=== PATIENT | female | born 1970 | race Two or more races ===

== ENCOUNTER 2020-05-07 11:47 | Day surgery (SDC) | payer OTHER ==
[2020-05-07] MEDS ORDERED: Sodium Chloride 0.9% 10 ML Syringe FLUSH PRN (12:12)
[2020-05-07] MEDS ORDERED: Sodium Chloride 0.9% 2.5 ML Syringe FLUSH PRN (12:12)
[2020-05-07] MEDS ORDERED: fentaNYL 50 MCG/ML SDV IVPUSH ONE ×2 (12:21→15:04)
--- NOTE | 2020-05-07 12:31 | EDM.PDOC ---
ED HPI GENERAL MEDICAL PROBLEM - General Chief Complaint: Abdominal Pain Stated Complaint: PAIN RADIATING FROM THE BACK TO THE FRONT Time Seen by Provider: 05/07/20 11:57 Source of Information: Reports: Patient History Limitations: Reports: Language Barrier - History of Present Illness INITIAL COMMENTS - FREE TEXT/NARRATIVE: Patient interviewed with a professional motor vehicle parts interpreter. 50-year-old female with no past medical history presenting with abdominal pain. She reports the sudden onset of severe right upper quadrant abdominal pain rating to the back several hours ago this morning. Nothing makes it better or worse. She does have a history of similar pain like this in the past and was told that she has gallstones. No history of kidney stones. The pain is rated as 10 out of 10 and constant. Denies fever, nausea, vomiting, dysuria, urinary frequency, hematuria, bloody vomit or bloody stools. ROS: A 10-point review of systems was negative, except as noted in the HPI (or in the ROS section of this note). Past medical history: Reviewed, no additional pertinent history. Surgical history: Reviewed in system, no additional pertinent history. Social history: Reviewed in system, no additional pertinent history. Family history: Reviewed in system, no additional pertinent history. PHYSICAL EXAM Vital signs reviewed. Nursing notes reviewed. Constitutional: Awake, alert, appears extremely uncomfortable. Head: Normocephalic, atraumatic. Eyes: EOMI, conjunctiva normal, no discharge, no scleral icterus. Ears, Nose, Throat: External ears and nose normal, moist oral mucosa. Cardiovascular: 2+ radial pulse, capillary refill less than 2 seconds. Pulmonary: normal work of breathing, no accessory muscle use. Abdomen/GI: Soft, moderate right upper quadrant tenderness, nondistended, no guarding or rigidity, no masses. No CVA tenderness. Musculoskeletal: No deformities. Integumentary: Appropriate color for ethnicity, warm, dry, no pallor or jaundice, no rash. Neurologic: Alert, answering questions appropriately, normal speech, no facial droop, moving all extremities well. Psychiatric: Anxious. RUQ Pain Score (Numeric/FACES): 10 - Related Data Allergies Allergy/AdvReac Type Severity Reaction Status Date / Time No Known Allergies Allergy Verified 05/07/20 12:11 Home Meds: Home Meds . [No Known Home Meds] 05/07/20 [History] Past Medical History HEENT History: Reports: None Cardiovascular History: Reports: None Respiratory History: Reports: None Gastrointestinal History: Reports: Cholelithiasis Genitourinary History: Reports: None PROFESSIONAL CASTER History: Reports: None Musculoskeletal History: Reports: None Neurological History: Reports: CVA, TIA Psychiatric History: Reports: None Endocrine/Metabolic History: Reports: None Hematologic History: Reports: None Immunologic History: Reports: None Oncologic (Cancer) History: Reports: None Dermatologic History: Reports: None - Infectious Disease History Infectious Disease History: Reports: None - Past Surgical History Head Surgeries/Procedures: Reports: None HEENT Surgical History: Reports: None Cardiovascular Surgical History: Reports: None Respiratory Surgical History: Reports: None GI Surgical History: Reports: None Female Surgical History: Reports: None Endocrine Surgical History: Reports: None Neurological Surgical History: Reports: None Musculoskeletal Surgical History: Reports: None Oncologic Surgical History: Reports: None Dermatological Surgical History: Reports: None Social & Family History - Family History Family Medical History: Noncontributory - Tobacco Use Smoking Status *Q: Current Every Day Smoker Years of Tobacco use: 7 Packs/Tins Daily: 0.4 - Caffeine Use Caffeine Use: Reports: None - Recreational Drug Use Recreational Drug Use: No ED ROS GENERAL - Review of Systems Review Of Systems: See Below ED EXAM, GI/ABD - Physical Exam Exam: See Below EKG INTERPRETATION EKG Interpretation Comments: 12-Lead ECG Interpretation Acquired: 12:18 PM Rhythm: Sinus bradycardia Rate: 48 bpm [place]: Normal Intervals: Normal Ectopy: None Ischemic Changes: None apparent RV Strain: No obvious RV strain pattern. ST Segments/T-Waves: T wave inversions in aVL Interpretation: Unremarkable Course - Vital Signs Text/Narrative:: Labs reassuring. Urinalysis bland. CT abdomen/pelvis shows 2 gallstones. Abdominal ultrasound study shows a 2.3 cm gallstone within the gallbladder without evidence of biliary ductal dilatation, wall measurement does meet criteria for thickening as it is greater than 3 mm. Given multiple rounds of IV opioids including fentanyl x2 and Dilaudid. Suspicion for symptomatic cholelithiasis. Given ongoing pain and presence of stones, I did consult the on-call general surgeon Dr. Juan David Santana who evaluated the patient in the emergency department. I am concerned about ongoing pain and the patient will need to come into the hospital for this. Dr. Santana agrees to admit to observation status and likely cholecystectomy tomorrow morning. Last Recorded V/S: Last Vital Signs Temp 36.2 C 05/07/20 17:05 Pulse 51 L 05/07/20 17:05 Resp 16 05/07/20 17:05 BP 137/74 05/07/20 17:05 Pulse Ox 98 05/07/20 17:05 - Orders/Labs/Meds Orders: Active Orders 24 hr Category Date Time Status Admission Status [Patient Status] [ADT] Stat ADT 05/07/20 16:52 Active EKG Documentation Completion [RC] STAT Care 05/07/20 12:12 Active Pulse Oximetry [RC] ASDIRECTED Care 05/07/20 12:12 Active NPO Now [Nothing per Oral Now Diet] [DIET] Diet 05/07/20 Dinner Active CORONAVIRUS COVID-19 SIS [MOLEC] Stat Lab 05/07/20 17:15 Received Sodium Chloride 0.9% [Saline Flush] Med 05/07/20 12:12 Active 10 ml FLUSH ASDIRECTED PRN Sodium Chloride 0.9% [Saline Flush] Med 05/07/20 12:12 Active 2.5 ml FLUSH ASDIRECTED PRN Saline Lock Insert [OM.PC] Stat Oth 05/07/20 12:12 Ordered Medication Orders Sodium Chloride (Saline Flush) 2.5 ml FLUSH ASDIRECTED PRN PRN Reason: Keep Vein Open Last Admin: 05/07/20 12:29 Dose: 2.5 ml Documented by: KODY Sodium Chloride (Saline Flush) 10 ml FLUSH ASDIRECTED PRN PRN Reason: Keep Vein Open Last Admin: 05/07/20 12:29 Dose: 10 ml Documented by: KODY Labs: Laboratory Tests 05/07/20 05/07/20 05/07/20 Range/Units 12:25 12:25 12:25 WBC 6.37 (4.0-11.0) K/uL RBC 4.72 (4.30-5.90) M/uL Hgb 13.3 (12.0-16.0) g/dL Hct 39.3 (36.0-46.0) % MCV 83.3 (80.0-98.0) fL MCH 28.2 (27.0-32.0) pg MCHC 33.8 (31.0-37.0) g/dL RDW Std Deviation 41.3 (28.0-62.0) fl RDW Coeff of Amy 14 (11.0-15.0) % Plt Count 221 (150-400) K/uL MPV 11.20 (7.40-12.00) fL Neut % (Auto) 66.3 (48.0-80.0) % Lymph % (Auto) 19.3 (16.0-40.0) % [place] % (Auto) 10.8 (0.0-15.0) % Eos % (Auto) 3.6 (0.0-7.0) % Baso % (Auto) 0.0 (0.0-1.5) % Neut # (Auto) 4.2 (1.4-5.7) K/uL Lymph # (Auto) 1.2 (0.6-2.4) K/uL [place] # (Auto) 0.7 (0.0-0.8) K/uL Eos # (Auto) 0.2 (0.0-0.7) K/uL Baso # (Auto) 0.0 (0.0-0.1) K/uL Sodium 139 (136-145) mmol/L Potassium 4.1 (3.5-5.1) mmol/L Chloride 105 (98-107) mmol/L Carbon Dioxide 26.4 (21.0-32.0) mmol/L BUN 10 (7.0-18.0) mg/dL Creatinine 0.9 (0.6-1.0) mg/dL Est Cr Clr Drug Dosing 64.58 mL/min Estimated GFR (MDRD) > 60.0 ml/min Glucose 106 (74-106) mg/dL Calcium 8.5 (8.5-10.1) mg/dL Total Bilirubin 0.3 (0.2-1.0) mg/dL AST 22 (15-37) IU/L ALT 21 (14-63) IU/L Alkaline Phosphatase 95 (46-116) U/L Troponin I < 0.050 (0.000-0.056) ng/mL Total Protein 8.1 (6.4-8.2) g/dL Albumin 3.9 (3.4-5.0) g/dL Globulin 4.2 H (2.6-4.0) g/dL Albumin/Globulin Ratio 0.9 (0.9-1.6) Lipase 155 (73-393) U/L HCG, Qual NEGATIVE (NEG) Urine Color Urine Appearance Urine pH (5.0-8.0) Ur Specific [place] (1.001-1.035) Urine Protein (NEGATIVE) mg/dL Urine Glucose (UA) (NEGATIVE) mg/dL Urine Ketones (NEGATIVE) mg/dL Urine Occult Blood (NEGATIVE) Urine Nitrite (NEGATIVE) Urine Bilirubin (NEGATIVE) Urine Urobilinogen (<2.0) EU/dL Ur Leukocyte Esterase (NEGATIVE) 05/07/20 Range/Units 15:33 WBC (4.0-11.0) K/uL RBC (4.30-5.90) M/uL Hgb (12.0-16.0) g/dL Hct (36.0-46.0) % MCV (80.0-98.0) fL MCH (27.0-32.0) pg MCHC (31.0-37.0) g/dL RDW Std Deviation (28.0-62.0) fl RDW Coeff of Amy (11.0-15.0) % Plt Count (150-400) K/uL MPV (7.40-12.00) fL Neut % (Auto) (48.0-80.0) % Lymph % (Auto) (16.0-40.0) % [place] % (Auto) (0.0-15.0) % Eos % (Auto) (0.0-7.0) % Baso % (Auto) (0.0-1.5) % Neut # (Auto) (1.4-5.7) K/uL Lymph # (Auto) (0.6-2.4) K/uL [place] # (Auto) (0.0-0.8) K/uL Eos # (Auto) (0.0-0.7) K/uL Baso # (Auto) (0.0-0.1) K/uL Sodium (136-145) mmol/L Potassium (3.5-5.1) mmol/L Chloride (98-107) mmol/L Carbon Dioxide (21.0-32.0) mmol/L BUN (7.0-18.0) mg/dL Creatinine (0.6-1.0) mg/dL Est Cr Clr Drug Dosing mL/min Estimated GFR (MDRD) ml/min Glucose (74-106) mg/dL Calcium (8.5-10.1) mg/dL Total Bilirubin (0.2-1.0) mg/dL AST (15-37) IU/L ALT (14-63) IU/L Alkaline Phosphatase (46-116) U/L Troponin I (0.000-0.056) ng/mL Total Protein (6.4-8.2) g/dL Albumin (3.4-5.0) g/dL Globulin (2.6-4.0) g/dL Albumin/Globulin Ratio (0.9-1.6) Lipase (73-393) U/L HCG, Qual (NEG) Urine Color YELLOW Urine Appearance CLEAR Urine pH 6.0 (5.0-8.0) Ur Specific [place] <= 1.005 (1.001-1.035) Urine Protein NEGATIVE (NEGATIVE) mg/dL Urine Glucose (UA) NEGATIVE (NEGATIVE) mg/dL Urine Ketones NEGATIVE (NEGATIVE) mg/dL Urine Occult Blood NEGATIVE (NEGATIVE) Urine Nitrite NEGATIVE (NEGATIVE) Urine Bilirubin NEGATIVE (NEGATIVE) Urine Urobilinogen 0.2 (<2.0) EU/dL Ur Leukocyte Esterase NEGATIVE (NEGATIVE) Meds: Medications Generic Name Dose Route Start Last Admin Trade Name Freq PRN Reason Stop Dose Admin Sodium Chloride 2.5 ml 05/07/20 12:12 05/07/20 12:29 Saline Flush FLUSH 2.5 ml ASDIRECTED PRN Administration Keep Vein Open Sodium Chloride 10 ml 05/07/20 12:12 05/07/20 12:29 Saline Flush FLUSH 10 ml ASDIRECTED PRN Administration Keep Vein Open Discontinued Medications Generic Name Dose Route Start Last Admin Trade Name Freq PRN Reason Stop Dose Admin Fentanyl 75 mcg 05/07/20 12:21 05/07/20 12:28 Fentanyl IVPUSH 05/07/20 12:22 75 mcg ONETIME ONE Administration Fentanyl 75 mcg 05/07/20 15:04 05/07/20 15:20 Fentanyl IVPUSH 05/07/20 15:05 75 mcg ONETIME ONE Administration Hydromorphone HCl 1 mg 05/07/20 12:47 05/07/20 12:58 Dilaudid IVPUSH 05/07/20 12:48 1 mg ONETIME ONE Administration Piperacillin Sod/Tazobactam 100 mls @ 100 mls/hr 05/07/20 15:20 05/07/20 15:31 Sod 4.5 gm/ Sodium Chloride IV 05/07/20 16:19 100 mls/hr ONETIME ONE Administration Iopamidol 100 ml 05/07/20 15:58 05/07/20 15:59 Isovue-370 (76%) IVPUSH 05/07/20 15:59 100 ml ONETIME STA Administration Departure - Departure Time of Disposition: 17:00 Disposition: Refer to Observation Condition: Good Clinical Impression: Symptomatic cholelithiasis - Discharge Information Referrals: PCP,None [Primary Care Provider] - Forms: ED Department Discharge Sepsis Event Note (ED) - Evaluation Sepsis Screening Result: No Definite Risk - Focused Exam Vital Signs: Vital Signs Temp Pulse Resp BP Pulse Ox 05/07/20 17:05 36.2 C 51 L 16 137/74 98 05/07/20 16:47 54 L 18 137/74 98 05/07/20 15:20 52 L 18 130/64 98 05/07/20 12:08 36.2 C 57 L 18 134/77 98 - My Orders Last 24 Hours: My Active Orders 05/07/20 12:12 EKG Documentation Completion [RC] STAT Pulse Oximetry [RC] ASDIRECTED Sodium Chloride 0.9% [Saline Flush] 10 ml FLUSH ASDIRECTED PRN Sodium Chloride 0.9% [Saline Flush] 2.5 ml FLUSH ASDIRECTED PRN Saline Lock Insert [OM.PC] Stat 05/07/20 Dinner NPO Now [Nothing per Oral Now Diet] [DIET] 05/07/20 16:52 Admission Status [Patient Status] [ADT] Stat 05/07/20 17:15 CORONAVIRUS COVID-19 SIS [MOLEC] Stat - Assessment/Plan Last 24 Hours: My Active Orders 05/07/20 12:12 EKG Documentation Completion [RC] STAT Pulse Oximetry [RC] ASDIRECTED Sodium Chloride 0.9% [Saline Flush] 10 ml FLUSH ASDIRECTED PRN Sodium Chloride 0.9% [Saline Flush] 2.5 ml FLUSH ASDIRECTED PRN Saline Lock Insert [OM.PC] Stat 05/07/20 Dinner NPO Now [Nothing per Oral Now Diet] [DIET] 05/07/20 16:52 Admission Status [Patient Status] [ADT] Stat 05/07/20 17:15 CORONAVIRUS COVID-19 SIS [MOLEC] Stat
[2020-05-07] MEDS ORDERED: HYDROmorphone 1 MG/ML Syringe IVPUSH ONE (12:47)
[2020-05-07 13:09] LABS: BLOOD UREA NITROGEN,BUN 10 mg/dL (7.0-18.0); CARBON DIOXIDE,CO2 26.4 mmol/L (21.0-32.0); CHLORIDE,CL 105 mmol/L (98-107); GLUCOSE RANDOM 106 mg/dL (74-106); LIPASE 155 U/L (73-393); POTASSIUM,K 4.1 mmol/L (3.5-5.1); SODIUM,NA 139 mmol/L (136-145)
--- NOTE | 2020-05-07 14:08 | CT ---
CT abdomen and pelvis Technique: Multiple axial sections were obtained from above the dome of the diaphragm inferiorly through the pubic symphysis. Intravenous contrast was utilized. No oral contrast has been given. Comparison: No prior abdominal imaging is available. Findings: Visualized lung bases show nothing acute. Liver contains no focal parenchymal abnormality. Slight low density is noted next to the ligamentum teres fissure compatible with incidental fat. Spleen appears within normal limits. Adrenal glands show no nodule. Single rim calcified gallstone noted within the gallbladder measuring 1.8 cm. Kidneys show symmetric contrast enhancement. No hydronephrosis or mass is seen. Pancreas appears within normal limits. Small hiatal hernia is noted. Aorta shows no aneurysm. No retroperitoneal adenopathy or mesenteric abnormalities are seen. Subserosal fibroid is noted to the right side of the uterus measuring 3.1 cm. No pelvic mass or adenopathy is seen. No free fluid is seen. Appendix is seen which appears normal in size. Bone window settings were reviewed which showed no acute osseous finding. Impression: 1. Small hiatal hernia. 2. Single rim calcified gallstone measuring 1.8 cm. Right-sided uterine fibroid measuring 3.1 cm. 3. Nothing acute is appreciated on CT study of the abdomen and pelvis. Diagnostic code #2 Study was dictated in MDT
--- NOTE | 2020-05-07 15:04 | US ---
Addendum: Ultrasound and CT study was reviewed. CT exam shows 2 rim calcified gallstones. Larger stone within the fundus and there is a smaller stone within the gallbladder neck. CT exam also shows minimal haziness around the gallbladder wall. The larger fundal gallstone is not definitely appreciated on the ultrasound exam most likely obscured from bowel gas. Findings support but are not conclusive for acute cholecystitis. Please correlate with patient's symptoms and laboratory findings. --- Addendum1 above dictated on [05/07/2020 14:59] by [Jeramy Boudreaux, Ariel Manriquez] --- --- Addendum1 above signed on [05/07/2020 15:00] by [Jeramy Boudreaux Hilton J.] --- --- Original report below dictated on [05/07/2020 13:58] by [Jeramy Boudreaux Hilton J.] --- --- Original report below signed on [05/07/2020 14:01] by [Jeramy Boudreaux, Ariel Manriquez] --- Limited abdominal ultrasound: Multiple real-time images of the upper right abdomen were obtained. Comparison: No previous abdominal ultrasound, prior CT abdomen and pelvis study performed earlier on same day (1:40 PM). Findings: Liver shows no focal abnormality. Visualized portions of the pancreas shows no abnormality. Gallstone is noted within the gallbladder measuring 2.3 cm. No gallbladder wall thickening or biliary duct dilatation is seen. Right kidney shows no hydronephrosis or mass. Right kidney is length of 10.6 cm. Inferior vena cava is patent. Aorta shows no aneurysm. Impression: 1. Single gallstone within the gallbladder. No gallbladder wall thickening or biliary duct dilatation is seen. 2. No additional abnormality is appreciated on right upper quadrant abdominal ultrasound. Diagnostic code #2 Study was dictated in MDT --- Addendum1 signed ---
[2020-05-07] MEDS ORDERED: Piperacillin/Tazobactam 4.5 GM in Sodium Chloride 0.9% 100 ML IV ONE (15:20)
[2020-05-07] MEDS ORDERED: Iopamidol 755 Mg/ML 100 ML Bottle IVPUSH STA (15:58)
[2020-05-07] MEDS ORDERED: Ondansetron 4 MG/2 ML SDV IVPUSH PRN (17:22)
[2020-05-07] MEDS ORDERED: Acetaminophen/HYDROcodone 325-5 MG Tab PO PRN (17:22)
[2020-05-07] MEDS ORDERED: HYDROmorphone 2 MG/ML Syringe IVPUSH PRN (17:22)
[2020-05-07] MEDS ORDERED: cefOXitin 2 GM in Premix Bag 1 BAG IV ONE (17:37)
--- NOTE | 2020-05-07 17:58 | PCM.HP.2 ---
H&P History of Present Illness - General Date of Service: 05/07/20 Admit Problem/Dx: Admission Diagnosis/Problem Admission Diagnosis/Problem Symptomatic cholelithiasis Source of Information: Patient History Limitations: Reports: Language Barrier (we did use the translation devise) - History of Present Illness Initial Comments - Free Text/Narative: Pt is a pleasant 50 y/o female. She had some minimal epigastric pain last night, but this morning the pain became sever and started to move to her right side and back. No N/V. No fevers. Pt says she has been having similar attaches the past couple of months, but they usually resolve and are to as sever. She does not know of anything that makes the pain better or worse. She reports that the pain is the most severe she has ever had. She reports she was scheduled for cholecystectomy this November, but it was cancelled because of COVID and the hospital in [place] was not doing elective surgeries. She is here visiting her . Currently she does not have an elevated WBC or LFTs. US does show a stone in the neck of the gallbladder and CT shows two gallstones. I did call and speak with the radiologist and there is no korin-cystic fluid and CBD is not dilated and the wall is not thickened. RUQ Pain Score (Numeric/FACES): 10 - Related Data Allergies/Adverse Reactions: Allergies Allergy/AdvReac Type Severity Reaction Status Date / Time No Known Allergies Allergy Verified 05/08/20 00:55 Home Medications: Home Meds . [No Known Home Meds] 05/07/20 [History] Past Medical History HEENT History: Reports: None Cardiovascular History: Reports: RI (Pt says she had a "small" RI in the past but is only on baby ASA. She reports that she had a cardic work-up for her surgery which was good.) Respiratory History: Reports: None Gastrointestinal History: Reports: Cholelithiasis Genitourinary History: Reports: None [employer] History: Reports: None Musculoskeletal History: Reports: None Neurological History: Reports: None Psychiatric History: Reports: None Endocrine/Metabolic History: Reports: None Hematologic History: Reports: None Immunologic History: Reports: None Oncologic (Cancer) History: Reports: None Dermatologic History: Reports: None - Infectious Disease History Infectious Disease History: Reports: None - Past Surgical History Head Surgeries/Procedures: Reports: None HEENT Surgical History: Reports: None Cardiovascular Surgical History: Reports: None Respiratory Surgical History: Reports: None GI Surgical History: Reports: None Female Surgical History: Reports: Section Endocrine Surgical History: Reports: None Neurological Surgical History: Reports: None Musculoskeletal Surgical History: Reports: None Oncologic Surgical History: Reports: None Dermatological Surgical History: Reports: None Social & Family History - Family History Family Medical History: Noncontributory HEENT: Reports: None Cardiac: Reports: None Respiratory: Reports: None GI: Reports: None : Reports: None OBGYN: Reports: None Musculoskeletal: Reports: None - Tobacco Use Smoking Status *Q: Current Every Day Smoker Years of Tobacco use: 7 Packs/Tins Daily: 0.4 - Caffeine Use Caffeine Use: Reports: None - Alcohol Use Alcohol Use History: Yes Days Per Week of Alcohol Use: 1 (Occ has some tequila) - Recreational Drug Use Recreational Drug Use: No H&P Review of Systems - Review of Systems: Review Of Systems: See Below General: Reports: No Symptoms HEENT: Reports: No Symptoms Pulmonary: Reports: No Symptoms Cardiovascular: Reports: No Symptoms Gastrointestinal: Reports: Abdominal Pain. Denies: Anorexia, Bloody Stool, Constipation, Diarrhea, Difficulty Swallowing, Nausea, Vomiting Genitourinary: Reports: No Symptoms Musculoskeletal: Reports: No Symptoms Skin: Reports: No Symptoms Neurological: Reports: No Symptoms Exam - Exam Exam: See Below - Vital Signs Vital Signs: Last Vital Signs Temp 97.2 F 05/07/20 17:05 Pulse 51 L 05/07/20 17:05 Resp 16 05/07/20 17:05 BP 137/74 05/07/20 17:05 Pulse Ox 98 05/07/20 17:05 Weight: 155 lb - Exam General: Alert, Oriented, Cooperative Lungs: Clear to Auscultation Cardiovascular: Regular Rate, Regular Rhythm GI/Abdominal Exam: Soft, Tender (in the epigastric and RUQ), Other (She was some darkening of the skin that wrapes around her right side and abdomen there are also some darker spots that look possible like a bruise. She also has a darken area on the right side of her face. She reports them as a birthmark). No: Guarding, Rigid, Rebound Extremities: Normal Inspection Skin: Warm, Dry, Intact Neurological: Normal Speech. No: Focal Deficit Neuro Extensive - Mental Status: Alert, Normal Mood/Affect, Normal Cognition - Patient Data Lab Results Last 24 hrs: Laboratory Results - last 24 hr 05/07/20 05/07/20 05/07/20 Range/Units 12:25 12:25 12:25 WBC 6.37 (4.0-11.0) K/uL RBC 4.72 (4.30-5.90) M/uL Hgb 13.3 (12.0-16.0) g/dL Hct 39.3 (36.0-46.0) % MCV 83.3 (80.0-98.0) fL MCH 28.2 (27.0-32.0) pg MCHC 33.8 (31.0-37.0) g/dL RDW Std Deviation 41.3 (28.0-62.0) fl RDW Coeff of Amy 14 (11.0-15.0) % Plt Count 221 (150-400) K/uL MPV 11.20 (7.40-12.00) fL Neut % (Auto) 66.3 (48.0-80.0) % Lymph % (Auto) 19.3 (16.0-40.0) % [place] % (Auto) 10.8 (0.0-15.0) % Eos % (Auto) 3.6 (0.0-7.0) % Baso % (Auto) 0.0 (0.0-1.5) % Neut # (Auto) 4.2 (1.4-5.7) K/uL Lymph # (Auto) 1.2 (0.6-2.4) K/uL [place] # (Auto) 0.7 (0.0-0.8) K/uL Eos # (Auto) 0.2 (0.0-0.7) K/uL Baso # (Auto) 0.0 (0.0-0.1) K/uL Sodium 139 (136-145) mmol/L Potassium 4.1 (3.5-5.1) mmol/L Chloride 105 (98-107) mmol/L Carbon Dioxide 26.4 (21.0-32.0) mmol/L BUN 10 (7.0-18.0) mg/dL Creatinine 0.9 (0.6-1.0) mg/dL Est Cr Clr Drug Dosing 64.58 mL/min Estimated GFR (MDRD) > 60.0 ml/min Glucose 106 (74-106) mg/dL Calcium 8.5 (8.5-10.1) mg/dL Total Bilirubin 0.3 (0.2-1.0) mg/dL AST 22 (15-37) IU/L ALT 21 (14-63) IU/L Alkaline Phosphatase 95 (46-116) U/L Troponin I < 0.050 (0.000-0.056) ng/mL Total Protein 8.1 (6.4-8.2) g/dL Albumin 3.9 (3.4-5.0) g/dL Globulin 4.2 H (2.6-4.0) g/dL Albumin/Globulin Ratio 0.9 (0.9-1.6) Lipase 155 (73-393) U/L HCG, Qual NEGATIVE (NEG) Urine Color Urine Appearance Urine pH (5.0-8.0) Ur Specific [place] (1.001-1.035) Urine Protein (NEGATIVE) mg/dL Urine Glucose (UA) (NEGATIVE) mg/dL Urine Ketones (NEGATIVE) mg/dL Urine Occult Blood (NEGATIVE) Urine Nitrite (NEGATIVE) Urine Bilirubin (NEGATIVE) Urine Urobilinogen (<2.0) EU/dL Ur Leukocyte Esterase (NEGATIVE) 05/07/20 Range/Units 15:33 WBC (4.0-11.0) K/uL RBC (4.30-5.90) M/uL Hgb (12.0-16.0) g/dL Hct (36.0-46.0) % MCV (80.0-98.0) fL MCH (27.0-32.0) pg MCHC (31.0-37.0) g/dL RDW Std Deviation (28.0-62.0) fl RDW Coeff of Amy (11.0-15.0) % Plt Count (150-400) K/uL MPV (7.40-12.00) fL Neut % (Auto) (48.0-80.0) % Lymph % (Auto) (16.0-40.0) % [place] % (Auto) (0.0-15.0) % Eos % (Auto) (0.0-7.0) % Baso % (Auto) (0.0-1.5) % Neut # (Auto) (1.4-5.7) K/uL Lymph # (Auto) (0.6-2.4) K/uL [place] # (Auto) (0.0-0.8) K/uL Eos # (Auto) (0.0-0.7) K/uL Baso # (Auto) (0.0-0.1) K/uL Sodium (136-145) mmol/L Potassium (3.5-5.1) mmol/L Chloride (98-107) mmol/L Carbon Dioxide (21.0-32.0) mmol/L BUN (7.0-18.0) mg/dL Creatinine (0.6-1.0) mg/dL Est Cr Clr Drug Dosing mL/min Estimated GFR (MDRD) ml/min Glucose (74-106) mg/dL Calcium (8.5-10.1) mg/dL Total Bilirubin (0.2-1.0) mg/dL AST (15-37) IU/L ALT (14-63) IU/L Alkaline Phosphatase (46-116) U/L Troponin I (0.000-0.056) ng/mL Total Protein (6.4-8.2) g/dL Albumin (3.4-5.0) g/dL Globulin (2.6-4.0) g/dL Albumin/Globulin Ratio (0.9-1.6) Lipase (73-393) U/L HCG, Qual (NEG) Urine Color YELLOW Urine Appearance CLEAR Urine pH 6.0 (5.0-8.0) Ur Specific [place] <= 1.005 (1.001-1.035) Urine Protein NEGATIVE (NEGATIVE) mg/dL Urine Glucose (UA) NEGATIVE (NEGATIVE) mg/dL Urine Ketones NEGATIVE (NEGATIVE) mg/dL Urine Occult Blood NEGATIVE (NEGATIVE) Urine Nitrite NEGATIVE (NEGATIVE) Urine Bilirubin NEGATIVE (NEGATIVE) Urine Urobilinogen 0.2 (<2.0) EU/dL Ur Leukocyte Esterase NEGATIVE (NEGATIVE) Result Diagrams: 05/08/20 05:20 05/08/20 05:20 Sepsis Event Note - Evaluation Sepsis Screening Result: No Definite Risk - Focused Exam Vital Signs: Vital Signs Temp Pulse Resp BP Pulse Ox 08/11/20 17:05 97.2 F 51 L 16 137/74 98 05/07/20 16:47 54 L 18 137/74 98 05/07/20 15:20 52 L 18 130/64 98 05/07/20 12:08 97.2 F 57 L 18 134/77 98 *Q Meaningful Use (ADM) - VTE Risk Assess *Q Each Risk Factor Represents 1 Point: Age 41 - 59 years, Obesity ( BMI > 25 kg/m2) Total Score 1 Point Risk Factors: 2 Each Risk Factor Represents 2 Points: Laparoscopic surgery greater than 45 minutes Total Score 2 Point Risk Factors: 2 - Problem List (1) Symptomatic cholelithiasis SNOMED Code(s): 704066060, 455607330 ICD Code: K80.20 - CALCULUS OF GALLBLADDER W/O CHOLECYSTITIS W/O OBSTRUCTION Status: Acute Problem List Initiated/Reviewed/Updated: Yes Orders Last 24hrs: Active Orders 24 hr Category Date Time Status Patient Status [ADT] Routine ADT 05/07/20 17:22 Ordered Antiembolic Devices [RC] PER UNIT ROUTINE Care 05/07/20 17:32 Active EKG Documentation Completion [RC] STAT Care 05/07/20 12:12 Active Height and Weight [RC] UPON Care 05/07/20 17:22 Ordered Intake and Output [RC] QSHIFT Care 05/07/20 17:24 Ordered Oxygen Therapy [RC] PRN Care 05/07/20 17:22 Ordered Pulse Oximetry [RC] ASDIRECTED Care 05/07/20 12:12 Active Pulse Oximetry [RC] PRN Care 05/07/20 17:24 Ordered Up ad Rosa M [RC] ASDIRECTED Care 05/07/20 17:22 Ordered VTE/DVT Education [RC] PER UNIT ROUTINE Care 05/07/20 17:22 Ordered Vital Signs [RC] Q4H Care 05/07/20 17:22 Ordered Full Liquid Diet [DIET] Diet 05/07/20 Dinner Ordered NPO Now [Nothing per Oral Now Diet] [DIET] Diet 05/07/20 Dinner Active Nothing per Oral After Midnight Diet [DIET] Diet 05/07/20 Breakfast Ordered CBC WITH AUTO DIFF [HEME] AM Lab 05/08/20 05:11 Ordered COMPREHENSIVE METABOLIC PN,CMP [CHEM] AM Lab 05/08/20 05:11 Ordered CORONAVIRUS COVID-19 SIS [MOLEC] Stat Lab 05/07/20 17:15 Received Acetaminophen/HYDROcodone [[place] 325-5 MG] Med 05/07/20 17:22 Ordered 1 tab PO Q4H PRN HYDROmorphone [Dilaudid] Med 05/07/20 17:22 Ordered 0.25 mg IVPUSH Q2H PRN Ondansetron [Zofran] Med 05/07/20 17:22 Ordered 4 mg IVPUSH Q4H PRN Sodium Chloride 0.9% @ 125 MLS/HR (1000ml) Med 05/07/20 17:30 Ordered Sodium Chloride 0.9% [Normal Saline] 1,000 ml IV ASDIRECTED Sodium Chloride 0.9% [Saline Flush] Med 05/07/20 12:12 Active 10 ml FLUSH ASDIRECTED PRN Sodium Chloride 0.9% [Saline Flush] Med 05/07/20 12:12 Active 2.5 ml FLUSH ASDIRECTED PRN cefOXitin [Mefoxin in Dextrose,Iso-Osm 2 GM/50 ML] 2 gm Med 05/07/20 17:37 Ordered Premix Bag 1 bag IV ONETIME Saline Lock Insert [OM.PC] Stat Oth 05/07/20 12:12 Ordered Sequential Compression Device [OM.PC] Per Unit Routine Oth 05/07/20 17:25 Ordered Resuscitation Status Routine Resus Stat 05/07/20 17:22 Ordered Medication Orders Hydrocodone Bitart/Acetaminophen ([place] 325-5 Mg) 1 tab PO Q4H PRN PRN Reason: Pain (moderate 4-6) Hydromorphone HCl (Dilaudid) 0.25 mg IVPUSH Q2H PRN PRN Reason: Pain (severe 7-10) Sodium Chloride (Normal Saline) 1,000 mls @ 125 mls/hr IV ASDIRECTED HAYDE Cefoxitin Sodium 2 gm/ Premix 50 mls @ 100 mls/hr IV ONETIME ONE Stop: 05/07/20 18:06 Ondansetron HCl (Zofran) 4 mg IVPUSH Q4H PRN PRN Reason: Nausea Sodium Chloride (Saline Flush) 2.5 ml FLUSH ASDIRECTED PRN PRN Reason: Keep Vein Open Last Admin: 05/07/20 12:29 Dose: 2.5 ml Documented by: GROTALI Sodium Chloride (Saline Flush) 10 ml FLUSH ASDIRECTED PRN PRN Reason: Keep Vein Open Last Admin: 05/07/20 12:29 Dose: 10 ml Documented by: KODY Assessment/Plan Comment:: I did go over with the pt what a gallbladder was. I went over its function. I went over that she most likely has symptomatic cholelithiasis. I went over that since her pain is not control that she could be admitted and plan for a surgery in the morning. If the pain resolves, she could leave in the morning and go back to [place]. However the pt would like to have it done since she keeps on getting gallbladder attacks and her biliary colic appears to be getting worse. I went over the risks, goals, and alternatives of surgery. Risks include, but not limited to bleeding, infection, bile luca, injury to nearby structures like duodenum, or CBD, the need to convert to open, hernia formation, need for a cholangiogram, and that this may be something other than her gallbladder such as an ulcer. The pt understands, I did answer her questions. Pt wants to be admitted with likely surgery tomorrow morning.
[2020-05-07] MEDS: Sodium Chloride 0.9% 1,000 ML IV SCH (18:28)
[2020-05-08 06:33] LABS: BLOOD UREA NITROGEN,BUN 7 mg/dL (7.0-18.0); CARBON DIOXIDE,CO2 25.8 mmol/L (21.0-32.0); CHLORIDE,CL 105 mmol/L (98-107); GLUCOSE RANDOM 93 mg/dL (74-106); POTASSIUM,K 3.2 mmol/L (3.5-5.1); SODIUM,NA 139 mmol/L (136-145)
[2020-05-08] MEDS: Sodium Chloride 0.9% 1,000 ML IV SCH (07:06)
[2020-05-08] MEDS ORDERED: Midazolam 1 MG/ML 2 ML SDV ONE (07:09)
[2020-05-08] MEDS ORDERED: Ondansetron 4 MG/2 ML SDV ONE (07:09)
[2020-05-08] MEDS ORDERED: Propofol 200 MG/20 ML SDV ONE (07:09)
[2020-05-08] MEDS ORDERED: fentaNYL 250 MCG/5 ML SDV ONE (07:09)
[2020-05-08] MEDS ORDERED: Lidocaine 2% 100 MG/5 ML Syringe ONE (07:09)
[2020-05-08] MEDS ORDERED: Rocuronium Bromide 50 MG/5 ML Syringe ONE (07:09)
[2020-05-08] MEDS ORDERED: Dexamethasone 4 MG/ML 5 ML MDV ONE (07:09)
[2020-05-08] MEDS ORDERED: Glycopyrrolate 0.2 MG/ML SDV ONE ×2 (07:20→10:10)
[2020-05-08] MEDS ORDERED: HYDROmorphone 1 MG/ML Syringe IVPUSH PRN (07:39)
--- NOTE | 2020-05-08 08:11 | PCM.PN ---
- General Info Date of Service: 05/08/20 Subjective Update: She is feeling much better this morning. pain is almost completely gone. She has no complaints. Functional Status: Reports: Pain Controlled, Ambulating, Urinating - Review of Systems General: Reports: No Symptoms Pulmonary: Reports: No Symptoms Cardiovascular: Reports: No Symptoms Gastrointestinal: Reports: No Symptoms Genitourinary: Reports: No Symptoms - Patient Data Vitals - Most Recent: Last Vital Signs Temp 97.8 F 05/08/20 07:45 Pulse 58 L 05/08/20 07:45 Resp 14 05/08/20 07:45 BP 97/47 L 05/08/20 07:45 Pulse Ox 95 05/08/20 07:45 Weight - Most Recent: 150 lb 0.005 oz I&O - Last 24 Hours: Intake & Output 05/07/20 05/08/20 05/08/20 22:59 06:59 14:59 Intake Total 1251 Output Total 600 Balance 651 Lab Results Last 24 Hours: Laboratory Results - last 24 hr 05/07/20 05/07/20 05/07/20 Range/Units 12:25 12:25 12:25 WBC 6.37 (4.0-11.0) K/uL RBC 4.72 (4.30-5.90) M/uL Hgb 13.3 (12.0-16.0) g/dL Hct 39.3 (36.0-46.0) % MCV 83.3 (80.0-98.0) fL MCH 28.2 (27.0-32.0) pg MCHC 33.8 (31.0-37.0) g/dL RDW Std Deviation 41.3 (28.0-62.0) fl RDW Coeff of Amy 14 (11.0-15.0) % Plt Count 221 (150-400) K/uL MPV 11.20 (7.40-12.00) fL Neut % (Auto) 66.3 (48.0-80.0) % Lymph % (Auto) 19.3 (16.0-40.0) % [place] % (Auto) 10.8 (0.0-15.0) % Eos % (Auto) 3.6 (0.0-7.0) % Baso % (Auto) 0.0 (0.0-1.5) % Neut # (Auto) 4.2 (1.4-5.7) K/uL Lymph # (Auto) 1.2 (0.6-2.4) K/uL [place] # (Auto) 0.7 (0.0-0.8) K/uL Eos # (Auto) 0.2 (0.0-0.7) K/uL Baso # (Auto) 0.0 (0.0-0.1) K/uL Nucleated RBC % /100WBC Nucleated RBCs # K/uL Sodium 139 (136-145) mmol/L Potassium 4.1 (3.5-5.1) mmol/L Chloride 105 (98-107) mmol/L Carbon Dioxide 26.4 (21.0-32.0) mmol/L BUN 10 (7.0-18.0) mg/dL Creatinine 0.9 (0.6-1.0) mg/dL Est Cr Clr Drug Dosing 64.58 mL/min Estimated GFR (MDRD) > 60.0 ml/min Glucose 106 (74-106) mg/dL Calcium 8.5 (8.5-10.1) mg/dL Total Bilirubin 0.3 (0.2-1.0) mg/dL AST 22 (15-37) IU/L ALT 21 (14-63) IU/L Alkaline Phosphatase 95 (46-116) U/L Troponin I < 0.050 (0.000-0.056) ng/mL Total Protein 8.1 (6.4-8.2) g/dL Albumin 3.9 (3.4-5.0) g/dL Globulin 4.2 H (2.6-4.0) g/dL Albumin/Globulin Ratio 0.9 (0.9-1.6) Lipase 155 (73-393) U/L HCG, Qual NEGATIVE (NEG) Urine Color Urine Appearance Urine pH (5.0-8.0) Ur Specific [place] (1.001-1.035) Urine Protein (NEGATIVE) mg/dL Urine Glucose (UA) (NEGATIVE) mg/dL Urine Ketones (NEGATIVE) mg/dL Urine Occult Blood (NEGATIVE) Urine Nitrite (NEGATIVE) Urine Bilirubin (NEGATIVE) Urine Urobilinogen (<2.0) EU/dL Ur Leukocyte Esterase (NEGATIVE) SARS Virus RNA (PCR) (NEGATIVE) 05/07/20 05/07/20 05/08/20 Range/Units 15:33 17:15 05:20 WBC 3.73 L (4.0-11.0) K/uL RBC 4.16 L (4.30-5.90) M/uL Hgb 11.4 L (12.0-16.0) g/dL Hct 35.2 L (36.0-46.0) % MCV 84.6 (80.0-98.0) fL MCH 27.4 (27.0-32.0) pg MCHC 32.4 (31.0-37.0) g/dL RDW Std Deviation 44.4 (28.0-62.0) fl RDW Coeff of Amy 14 (11.0-15.0) % Plt Count 193 (150-400) K/uL MPV 10.50 (7.40-12.00) fL Neut % (Auto) 48.5 (48.0-80.0) % Lymph % (Auto) 32.7 (16.0-40.0) % [place] % (Auto) 12.1 (0.0-15.0) % Eos % (Auto) 6.7 (0.0-7.0) % Baso % (Auto) 0.0 (0.0-1.5) % Neut # (Auto) 1.8 (1.4-5.7) K/uL Lymph # (Auto) 1.2 (0.6-2.4) K/uL [place] # (Auto) 0.5 (0.0-0.8) K/uL Eos # (Auto) 0.3 (0.0-0.7) K/uL Baso # (Auto) 0.0 (0.0-0.1) K/uL Nucleated RBC % 0.0 /100WBC Nucleated RBCs # 0 K/uL Sodium (136-145) mmol/L Potassium (3.5-5.1) mmol/L Chloride (98-107) mmol/L Carbon Dioxide (21.0-32.0) mmol/L BUN (7.0-18.0) mg/dL Creatinine (0.6-1.0) mg/dL Est Cr Clr Drug Dosing mL/min Estimated GFR (MDRD) ml/min Glucose (74-106) mg/dL Calcium (8.5-10.1) mg/dL Total Bilirubin (0.2-1.0) mg/dL AST (15-37) IU/L ALT (14-63) IU/L Alkaline Phosphatase (46-116) U/L Troponin I (0.000-0.056) ng/mL Total Protein (6.4-8.2) g/dL Albumin (3.4-5.0) g/dL Globulin (2.6-4.0) g/dL Albumin/Globulin Ratio (0.9-1.6) Lipase (73-393) U/L HCG, Qual (NEG) Urine Color YELLOW Urine Appearance CLEAR Urine pH 6.0 (5.0-8.0) Ur Specific [place] <= 1.005 (1.001-1.035) Urine Protein NEGATIVE (NEGATIVE) mg/dL Urine Glucose (UA) NEGATIVE (NEGATIVE) mg/dL Urine Ketones NEGATIVE (NEGATIVE) mg/dL Urine Occult Blood NEGATIVE (NEGATIVE) Urine Nitrite NEGATIVE (NEGATIVE) Urine Bilirubin NEGATIVE (NEGATIVE) Urine Urobilinogen 0.2 (<2.0) EU/dL Ur Leukocyte Esterase NEGATIVE (NEGATIVE) SARS Virus RNA (PCR) NEGATIVE (NEGATIVE) 05/08/20 Range/Units 05:20 WBC (4.0-11.0) K/uL RBC (4.30-5.90) M/uL Hgb (12.0-16.0) g/dL Hct (36.0-46.0) % MCV (80.0-98.0) fL MCH (27.0-32.0) pg MCHC (31.0-37.0) g/dL RDW Std Deviation (28.0-62.0) fl RDW Coeff of Amy (11.0-15.0) % Plt Count (150-400) K/uL MPV (7.40-12.00) fL Neut % (Auto) (48.0-80.0) % Lymph % (Auto) (16.0-40.0) % [place] % (Auto) (0.0-15.0) % Eos % (Auto) (0.0-7.0) % Baso % (Auto) (0.0-1.5) % Neut # (Auto) (1.4-5.7) K/uL Lymph # (Auto) (0.6-2.4) K/uL [place] # (Auto) (0.0-0.8) K/uL Eos # (Auto) (0.0-0.7) K/uL Baso # (Auto) (0.0-0.1) K/uL Nucleated RBC % /100WBC Nucleated RBCs # K/uL Sodium 139 (136-145) mmol/L Potassium 3.2 L (3.5-5.1) mmol/L Chloride 105 (98-107) mmol/L Carbon Dioxide 25.8 (21.0-32.0) mmol/L BUN 7 (7.0-18.0) mg/dL Creatinine 0.8 (0.6-1.0) mg/dL Est Cr Clr Drug Dosing 73.18 mL/min Estimated GFR (MDRD) > 60.0 ml/min Glucose 93 (74-106) mg/dL Calcium 7.8 L (8.5-10.1) mg/dL Total Bilirubin 0.5 (0.2-1.0) mg/dL AST 18 (15-37) IU/L ALT 19 (14-63) IU/L Alkaline Phosphatase 69 (46-116) U/L Troponin I (0.000-0.056) ng/mL Total Protein 6.4 (6.4-8.2) g/dL Albumin 3.0 L (3.4-5.0) g/dL Globulin 3.4 (2.6-4.0) g/dL Albumin/Globulin Ratio 0.9 (0.9-1.6) Lipase (73-393) U/L HCG, Qual (NEG) Urine Color Urine Appearance Urine pH (5.0-8.0) Ur Specific [place] (1.001-1.035) Urine Protein (NEGATIVE) mg/dL Urine Glucose (UA) (NEGATIVE) mg/dL Urine Ketones (NEGATIVE) mg/dL Urine Occult Blood (NEGATIVE) Urine Nitrite (NEGATIVE) Urine Bilirubin (NEGATIVE) Urine Urobilinogen (<2.0) EU/dL Ur Leukocyte Esterase (NEGATIVE) SARS Virus RNA (PCR) (NEGATIVE) Med Orders - Current: Current Medications Hydrocodone Bitart/Acetaminophen ([place] 325-5 Mg) 1 tab PO Q4H PRN PRN Reason: Pain (moderate 4-6) Hydromorphone HCl (Dilaudid) 0.25 mg IVPUSH Q2H PRN PRN Reason: Pain (severe 7-10) Sodium Chloride (Normal Saline) 1,000 mls @ 125 mls/hr IV ASDIRECTED HAYDE Last Admin: 05/08/20 07:06 Dose: 125 mls/hr Documented by: Ondansetron HCl (Zofran) 4 mg IVPUSH Q4H PRN PRN Reason: Nausea Sodium Chloride (Saline Flush) 2.5 ml FLUSH ASDIRECTED PRN PRN Reason: Keep Vein Open Last Admin: 05/07/20 12:29 Dose: 2.5 ml Documented by: Sodium Chloride (Saline Flush) 10 ml FLUSH ASDIRECTED PRN PRN Reason: Keep Vein Open Last Admin: 05/07/20 12:29 Dose: 10 ml Documented by: Discontinued Medications Dexamethasone (Dexamethasone) Confirm Administered Dose 20 mg .ROUTE .STK-MED ONE Stop: 05/08/20 07:10 Fentanyl (Fentanyl) 75 mcg IVPUSH ONETIME ONE Stop: 05/07/20 12:22 Last Admin: 05/07/20 12:28 Dose: 75 mcg Documented by: Fentanyl (Fentanyl) 75 mcg IVPUSH ONETIME ONE Stop: 05/07/20 15:05 Last Admin: 05/07/20 15:20 Dose: 75 mcg Documented by: Fentanyl (Sublimaze) Confirm Administered Dose 250 mcg .ROUTE .STK-MED ONE Stop: 05/08/20 07:10 Glycopyrrolate (Robinul) Confirm Administered Dose 0.2 mg .ROUTE .STK-MED ONE Stop: 05/08/20 07:21 Hydromorphone HCl (Dilaudid) 1 mg IVPUSH ONETIME ONE Stop: 05/07/20 12:48 Last Admin: 05/07/20 12:58 Dose: 1 mg Documented by: Hydromorphone HCl (Dilaudid) 0.25 mg IVPUSH Q2H PRN PRN Reason: Pain (severe 7-10) Piperacillin Sod/Tazobactam (Sod 4.5 gm/ Sodium Chloride) 100 mls @ 100 mls/hr IV ONETIME ONE Stop: 05/07/20 16:19 Last Admin: 05/07/20 15:31 Dose: 100 mls/hr Documented by: Cefoxitin Sodium 2 gm/ Premix 50 mls @ 100 mls/hr IV ONETIME ONE Stop: 05/07/20 18:06 Iopamidol (Isovue-370 (76%)) 100 ml IVPUSH ONETIME STA Stop: 05/07/20 15:59 Last Admin: 05/07/20 15:59 Dose: 100 ml Documented by: Lidocaine HCl (Xylocaine 2%) Confirm Administered Dose 100 mg .ROUTE .STK-MED ONE Stop: 05/08/20 07:10 Midazolam HCl (Versed 1 Mg/Ml) Confirm Administered Dose 2 mg .ROUTE .STK-MED ONE Stop: 05/08/20 07:10 Ondansetron HCl (Zofran) Confirm Administered Dose 4 mg .ROUTE .STK-MED ONE Stop: 05/08/20 07:10 Propofol (Diprivan 20 Ml) Confirm Administered Dose 200 mg .ROUTE .STK-MED ONE Stop: 05/08/20 07:10 Rocuronium [place] (Rocuronium [place]) Confirm Administered Dose 50 mg .ROUTE .STK-MED ONE Stop: 05/08/20 07:10 - Exam General: Alert, Oriented, No Acute Distress Lungs: Clear to Auscultation Cardiovascular: Regular Rate, Regular Rhythm GI/Abdominal Exam: Soft, Non-Tender. No: Guarding, Rigid, Rebound Sepsis Event Note - Evaluation Sepsis Screening Result: No Definite Risk - Focused Exam Vital Signs: Vital Signs Temp Pulse Resp BP BP Pulse Ox 05/08/20 07:45 97.8 F 58 L 14 97/47 L 93/57 L 95 05/08/20 04:00 97.9 F 57 L 15 110/61 98 05/07/20 23:48 97.4 F 54 L 16 109/60 96 - Problem List & Annotations (1) Symptomatic cholelithiasis SNOMED Code(s): 825703853, 578865886 Code(s): K80.20 - CALCULUS OF GALLBLADDER W/O CHOLECYSTITIS W/O OBSTRUCTION Status: Acute - Problem List Review Problem List Initiated/Reviewed/Updated: Yes - My Orders Last 24 Hours: My Active Orders 05/07/20 17:22 Patient Status [ADT] Routine Height and Weight [RC] UPON Oxygen Therapy [RC] PRN Up ad Rosa M [RC] ASDIRECTED VTE/DVT Education [RC] PER UNIT ROUTINE Vital Signs [RC] Q4H Acetaminophen/HYDROcodone [[place] 325-5 MG] 1 tab PO Q4H PRN Ondansetron [Zofran] 4 mg IVPUSH Q4H PRN Resuscitation Status Routine 05/07/20 17:24 Intake and Output [RC] Q12H Pulse Oximetry [RC] PRN 05/07/20 17:25 Sequential Compression Device [OM.PC] Per Unit Routine 05/07/20 17:30 Sodium Chloride 0.9% [Normal Saline] 1,000 ml IV ASDIRECTED 05/07/20 17:32 Antiembolic Devices [RC] PER UNIT ROUTINE 05/08/20 07:39 HYDROmorphone [Dilaudid] 0.25 mg IVPUSH Q2H PRN - Plan Plan:: Symptomatic cholelithiasis. Pt is feeling much better today. I did go over that she could go home and have the gallbladder removed at a later date, or proceed with the surgery today. She wants to proceed with the surgery which I think is reasonable since she has had multiple attacks and required to be hospitalized for pain last night. I again went over the the risks which include, but not limited to bleeding, infection, bile luca, injury to nearby structures like duodenum, or CBD, the need to convert to open, hernia formation, roberts in bowel habits, need for a cholangiogram, and that this may be something other than her gallbladder such as an ulcer. The pt understands, I did answer her questions. Plan for lap aurelio later today with likely discharge home afterwards.
[2020-05-08] MEDS ORDERED: Scopolamine 1.5 MG Transdermal Patch TRDERM PRN (08:16)
--- NOTE | 2020-05-08 08:16 | PCM.PREANE ---
Preanesthetic Assessment - Anesthesia/Transfusion/Family Hx Anesthesia History: Prior Anesthesia Without Reaction Family History of Anesthesia Reaction: No Transfusion History: No Prior Transfusion(s) Intubation History: Unknown - Review of Systems General: No Symptoms Pulmonary: No Symptoms Cardiovascular: No Symptoms Gastrointestinal: Abdominal Pain Neurological: No Symptoms Other: Reports: None - Physical Assessment Vital Signs: Last Vital Signs Temp 36.6 C 05/08/20 07:45 Pulse 58 L 05/08/20 07:45 Resp 14 05/08/20 07:45 BP 97/47 L 05/08/20 07:45 Pulse Ox 95 05/08/20 07:45 Height: 5 ft 4.17 in Weight: 68.039 kg ASA Class: 2 Mental Status: Alert & Oriented x3 Airway Class: Mallampati = 1 Dentition: Reports: Normal Dentition (small chip front upper incisor) Thyro-Mental Finger Breadths: 3 Mouth Opening Finger Breadths: 3 ROM/Head Extension: Full Lungs: Clear to Auscultation, Normal Respiratory Effort Cardiovascular: Regular Rate, Regular Rhythm - Lab Values: Laboratory Last Values WBC 3.73 K/uL (4.0-11.0) L 05/08/20 05:20 RBC 4.16 M/uL (4.30-5.90) L 05/08/20 05:20 Hgb 11.4 g/dL (12.0-16.0) L 05/08/20 05:20 Hct 35.2 % (36.0-46.0) L 05/08/20 05:20 MCV 84.6 fL (80.0-98.0) 05/08/20 05:20 MCH 27.4 pg (27.0-32.0) 05/08/20 05:20 MCHC 32.4 g/dL (31.0-37.0) 05/08/20 05:20 RDW Std Deviation 44.4 fl (28.0-62.0) 05/08/20 05:20 RDW Coeff of Amy 14 % (11.0-15.0) 05/08/20 05:20 Plt Count 193 K/uL (150-400) 05/08/20 05:20 MPV 10.50 fL (7.40-12.00) 05/08/20 05:20 Neut % (Auto) 48.5 % (48.0-80.0) 05/08/20 05:20 Lymph % (Auto) 32.7 % (16.0-40.0) 05/08/20 05:20 [place] % (Auto) 12.1 % (0.0-15.0) 05/08/20 05:20 Eos % (Auto) 6.7 % (0.0-7.0) 05/08/20 05:20 Baso % (Auto) 0.0 % (0.0-1.5) 05/08/20 05:20 Neut # (Auto) 1.8 K/uL (1.4-5.7) 05/08/20 05:20 Lymph # (Auto) 1.2 K/uL (0.6-2.4) 05/08/20 05:20 [place] # (Auto) 0.5 K/uL (0.0-0.8) 05/08/20 05:20 Eos # (Auto) 0.3 K/uL (0.0-0.7) 05/08/20 05:20 Baso # (Auto) 0.0 K/uL (0.0-0.1) 05/08/20 05:20 Nucleated RBC % 0.0 /100WBC 05/08/20 05:20 Nucleated RBCs # 0 K/uL 05/08/20 05:20 Sodium 139 mmol/L (136-145) 05/08/20 05:20 Potassium 3.2 mmol/L (3.5-5.1) L 05/08/20 05:20 Chloride 105 mmol/L (98-107) 05/08/20 05:20 Carbon Dioxide 25.8 mmol/L (21.0-32.0) 05/08/20 05:20 BUN 7 mg/dL (7.0-18.0) 05/08/20 05:20 Creatinine 0.8 mg/dL (0.6-1.0) 05/08/20 05:20 Est Cr Clr Drug Dosing 73.18 mL/min 05/08/20 05:20 Estimated GFR (MDRD) > 60.0 ml/min 05/08/20 05:20 Glucose 93 mg/dL (74-106) 05/08/20 05:20 Calcium 7.8 mg/dL (8.5-10.1) L 05/08/20 05:20 Total Bilirubin 0.5 mg/dL (0.2-1.0) 05/08/20 05:20 AST 18 IU/L (15-37) 05/08/20 05:20 ALT 19 IU/L (14-63) 05/08/20 05:20 Alkaline Phosphatase 69 U/L (46-116) 05/08/20 05:20 Troponin I < 0.050 ng/mL (0.000-0.056) 05/07/20 12:25 Total Protein 6.4 g/dL (6.4-8.2) 05/08/20 05:20 Albumin 3.0 g/dL (3.4-5.0) L 05/08/20 05:20 Globulin 3.4 g/dL (2.6-4.0) 05/08/20 05:20 Albumin/Globulin Ratio 0.9 (0.9-1.6) 05/08/20 05:20 Lipase 155 U/L (73-393) 05/07/20 12:25 HCG, Qual NEGATIVE (NEG) 05/07/20 12:25 Urine Color YELLOW 05/07/20 15:33 Urine Appearance CLEAR 05/07/20 15:33 Urine pH 6.0 (5.0-8.0) 05/07/20 15:33 Ur Specific [place] <= 1.005 (1.001-1.035) 05/07/20 15:33 Urine Protein NEGATIVE mg/dL (NEGATIVE) 05/07/20 15:33 Urine Glucose (UA) NEGATIVE mg/dL (NEGATIVE) 05/07/20 15:33 Urine Ketones NEGATIVE mg/dL (NEGATIVE) 05/07/20 15:33 Urine Occult Blood NEGATIVE (NEGATIVE) 05/07/20 15:33 Urine Nitrite NEGATIVE (NEGATIVE) 05/07/20 15:33 Urine Bilirubin NEGATIVE (NEGATIVE) 05/07/20 15:33 Urine Urobilinogen 0.2 EU/dL (<2.0) 05/07/20 15:33 Ur Leukocyte Esterase NEGATIVE (NEGATIVE) 05/07/20 15:33 SARS Virus RNA (PCR) NEGATIVE (NEGATIVE) 05/07/20 17:15 - Allergies Allergies/Adverse Reactions: Allergies Allergy/AdvReac Type Severity Reaction Status Date / Time No Known Allergies Allergy Verified 05/08/20 00:55 - Blood Blood Available: No - Anesthesia Plan Pre-Op Medication Ordered: None - Acknowledgements Anesthesia Type Planned: General Anesthesia Pt an Appropriate Candidate for the Planned Anesthesia: Yes Alternatives and Risks of Anesthesia Discussed w Pt/Guardian: Yes Pt/Guardian Understands and Agrees with Anesthesia Plan: Yes PreAnesthesia Questionnaire HEENT History: Reports: None Cardiovascular History: Reports: None, Other (See Below) (h/o chest and left arm pain 8-9 years ago, ok since , active) Respiratory History: Reports: None Gastrointestinal History: Reports: Cholelithiasis Genitourinary History: Reports: None [employer] History: Reports: None Musculoskeletal History: Reports: None Psychiatric History: Reports: None Endocrine/Metabolic History: Reports: None Hematologic History: Reports: None Immunologic History: Reports: None Oncologic (Cancer) History: Reports: None Dermatologic History: Reports: None - Infectious Disease History Infectious Disease History: Reports: None - Past Surgical History Head Surgeries/Procedures: Reports: None HEENT Surgical History: Reports: None Cardiovascular Surgical History: Reports: None Respiratory Surgical History: Reports: None GI Surgical History: Reports: None Female Surgical History: Reports: None Endocrine Surgical History: Reports: None Neurological Surgical History: Reports: None Musculoskeletal Surgical History: Reports: None Oncologic Surgical History: Reports: None Dermatological Surgical History: Reports: None - SUBSTANCE USE Smoking Status *Q: Light Tobacco Smoker (4-6 cigarettes per day) Tobacco Use Within Last Twelve Months: Cigarettes Days Per Week of Alcohol Use: 1 (Occ has some tequila) Recreational Drug Use History: No - HOME MEDS Home Medications: Home Meds . [No Known Home Meds] 05/07/20 [History] - CURRENT (IN HOUSE) MEDS Current Meds: Current Medications Hydrocodone Bitart/Acetaminophen ([place] 325-5 Mg) 1 tab PO Q4H PRN PRN Reason: Pain (moderate 4-6) Hydromorphone HCl (Dilaudid) 0.25 mg IVPUSH Q2H PRN PRN Reason: Pain (severe 7-10) Sodium Chloride (Normal Saline) 1,000 mls @ 125 mls/hr IV ASDIRECTED HAYDE Last Admin: 05/08/20 07:06 Dose: 125 mls/hr Documented by: Ondansetron HCl (Zofran) 4 mg IVPUSH Q4H PRN PRN Reason: Nausea Sodium Chloride (Saline Flush) 2.5 ml FLUSH ASDIRECTED PRN PRN Reason: Keep Vein Open Last Admin: 05/07/20 12:29 Dose: 2.5 ml Documented by: Sodium Chloride (Saline Flush) 10 ml FLUSH ASDIRECTED PRN PRN Reason: Keep Vein Open Last Admin: 05/07/20 12:29 Dose: 10 ml Documented by: Discontinued Medications Dexamethasone (Dexamethasone) Confirm Administered Dose 20 mg .ROUTE .STK-MED ONE Stop: 05/08/20 07:10 Fentanyl (Fentanyl) 75 mcg IVPUSH ONETIME ONE Stop: 05/07/20 12:22 Last Admin: 05/07/20 12:28 Dose: 75 mcg Documented by: Fentanyl (Fentanyl) 75 mcg IVPUSH ONETIME ONE Stop: 05/07/20 15:05 Last Admin: 05/07/20 15:20 Dose: 75 mcg Documented by: Fentanyl (Sublimaze) Confirm Administered Dose 250 mcg .ROUTE .STK-MED ONE Stop: 05/08/20 07:10 Glycopyrrolate (Robinul) Confirm Administered Dose 0.2 mg .ROUTE .STK-MED ONE Stop: 05/08/20 07:21 Hydromorphone HCl (Dilaudid) 1 mg IVPUSH ONETIME ONE Stop: 05/07/20 12:48 Last Admin: 05/07/20 12:58 Dose: 1 mg Documented by: Hydromorphone HCl (Dilaudid) 0.25 mg IVPUSH Q2H PRN PRN Reason: Pain (severe 7-10) Piperacillin Sod/Tazobactam (Sod 4.5 gm/ Sodium Chloride) 100 mls @ 100 mls/hr IV ONETIME ONE Stop: 05/07/20 16:19 Last Admin: 05/07/20 15:31 Dose: 100 mls/hr Documented by: Cefoxitin Sodium 2 gm/ Premix 50 mls @ 100 mls/hr IV ONETIME ONE Stop: 05/07/20 18:06 Iopamidol (Isovue-370 (76%)) 100 ml IVPUSH ONETIME STA Stop: 05/07/20 15:59 Last Admin: 05/07/20 15:59 Dose: 100 ml Documented by: Lidocaine HCl (Xylocaine 2%) Confirm Administered Dose 100 mg .ROUTE .STK-MED ONE Stop: 05/08/20 07:10 Midazolam HCl (Versed 1 Mg/Ml) Confirm Administered Dose 2 mg .ROUTE .STK-MED ONE Stop: 05/08/20 07:10 Ondansetron HCl (Zofran) Confirm Administered Dose 4 mg .ROUTE .STK-MED ONE Stop: 05/08/20 07:10 Propofol (Diprivan 20 Ml) Confirm Administered Dose 200 mg .ROUTE .STK-MED ONE Stop: 05/08/20 07:10 Rocuronium [place] (Rocuronium [place]) Confirm Administered Dose 50 mg .ROUTE .STK-MED ONE Stop: 05/08/20 07:10
[2020-05-08] MEDS ORDERED: Octyl 2-Cyanoacrylate 1 Tube ONE (09:55)
[2020-05-08] MEDS ORDERED: Bupivacaine 0.25%/EPINEPHrine 1:200,000 10 ML SDV ONE (09:55)
[2020-05-08] MEDS ORDERED: Ketorolac 30 MG/ML SDV ONE (10:09)
[2020-05-08] MEDS ORDERED: cefOXitin 2 GM in Premix Bag 1 BAG IV ONE (10:15)
[2020-05-08] MEDS ORDERED: fentaNYL 100 MCG/2 ML SDV IVPUSH PRN (10:59)
[2020-05-08] MEDS ORDERED: Acetaminophen 1,000 MG in Premix Bag 1 BAG IV PRN (10:59)
[2020-05-08] MEDS ORDERED: fentaNYL 100 MCG/2 ML SDV ONE (11:33)
--- NOTE | 2020-05-08 12:05 | PCM.OPNOTE ---
- General Post-Op/Procedure Note Date of Surgery/Procedure: 05/08/20 Operative Procedure(s): Laparoscopic Cholecystectomy Findings: edematous gallbladder, Large gallstone. [id number] Pre Op Diagnosis: symptomatic cholelithiasis Post-Op Diagnosis: symptomatic cholelithiasis Anesthesia Technique: General ET Tube Primary Surgeon: Juan David Santana Pathology: gallbladder EBL in mLs: 10 Complications: None Condition: Good Free Text/Narrative:: Intake & Output 05/07/20 05/08/20 05/08/20 22:59 06:59 14:59 Intake Total 1251 Output Total 600 Balance 651
--- NOTE | 2020-05-08 13:39 | PCM.POSTAN ---
POST ANESTHESIA ASSESSMENT - MENTAL STATUS Mental Status: Alert, Oriented - VITAL SIGNS Vital Signs: Last Vital Signs Temp 36.4 C 05/08/20 13:05 Pulse 45 L 05/08/20 13:05 Resp 16 05/08/20 13:05 BP 109/57 L 05/08/20 13:05 Pulse Ox 96 05/08/20 13:05 - RESPIRATORY Respiratory Status: Respiratory Rate WNL, Airway Patent, O2 Saturation Stable - CARDIOVASCULAR CV Status: Pulse Rate WNL, Blood Pressure Stable - GASTROINTESTINAL GI Status: No Symptoms - PAIN Pain Score: 2 - POST OP HYDRATION Hydration Status: Adequate & Stable - OBSERVATIONS Free Text/Narrative:: No anesthesia problems
--- NOTE | 2020-05-08 15:09 | PCM.SURGPN ---
- General Info Date of Service: 05/08/20 Date of Surgery/Procedure: 05/08/20 POD#: 0 Functional Status: Reports: Pain Controlled, Tolerating Diet - Review of Systems General: Reports: No Symptoms - Patient Data Vitals - Most Recent: Last Vital Signs Temp 97.5 F 05/08/20 14:05 Pulse 50 L 05/08/20 14:05 Resp 12 05/08/20 14:05 BP 108/68 05/08/20 14:05 Pulse Ox 98 05/08/20 14:05 Weight - Most Recent: 150 lb 0.005 oz I&O - Last 24 Hours: Intake & Output 05/08/20 05/08/20 05/08/20 06:59 14:59 22:59 Intake Total 1251 1600 Output Total 600 Balance 651 1600 Lab Results Last 24 Hrs: Laboratory Results - last 24 hr 05/07/20 05/07/20 05/08/20 Range/Units 15:33 17:15 05:20 WBC 3.73 L (4.0-11.0) K/uL RBC 4.16 L (4.30-5.90) M/uL Hgb 11.4 L (12.0-16.0) g/dL Hct 35.2 L (36.0-46.0) % MCV 84.6 (80.0-98.0) fL MCH 27.4 (27.0-32.0) pg MCHC 32.4 (31.0-37.0) g/dL RDW Std Deviation 44.4 (28.0-62.0) fl RDW Coeff of Amy 14 (11.0-15.0) % Plt Count 193 (150-400) K/uL MPV 10.50 (7.40-12.00) fL Neut % (Auto) 48.5 (48.0-80.0) % Lymph % (Auto) 32.7 (16.0-40.0) % [place] % (Auto) 12.1 (0.0-15.0) % Eos % (Auto) 6.7 (0.0-7.0) % Baso % (Auto) 0.0 (0.0-1.5) % Neut # (Auto) 1.8 (1.4-5.7) K/uL Lymph # (Auto) 1.2 (0.6-2.4) K/uL [place] # (Auto) 0.5 (0.0-0.8) K/uL Eos # (Auto) 0.3 (0.0-0.7) K/uL Baso # (Auto) 0.0 (0.0-0.1) K/uL Nucleated RBC % 0.0 /100WBC Nucleated RBCs # 0 K/uL Sodium (136-145) mmol/L Potassium (3.5-5.1) mmol/L Chloride (98-107) mmol/L Carbon Dioxide (21.0-32.0) mmol/L BUN (7.0-18.0) mg/dL Creatinine (0.6-1.0) mg/dL Est Cr Clr Drug Dosing mL/min Estimated GFR (MDRD) ml/min Glucose (74-106) mg/dL Calcium (8.5-10.1) mg/dL Total Bilirubin (0.2-1.0) mg/dL AST (15-37) IU/L ALT (14-63) IU/L Alkaline Phosphatase (46-116) U/L Total Protein (6.4-8.2) g/dL Albumin (3.4-5.0) g/dL Globulin (2.6-4.0) g/dL Albumin/Globulin Ratio (0.9-1.6) Urine Color YELLOW Urine Appearance CLEAR Urine pH 6.0 (5.0-8.0) Ur Specific [place] <= 1.005 (1.001-1.035) Urine Protein NEGATIVE (NEGATIVE) mg/dL Urine Glucose (UA) NEGATIVE (NEGATIVE) mg/dL Urine Ketones NEGATIVE (NEGATIVE) mg/dL Urine Occult Blood NEGATIVE (NEGATIVE) Urine Nitrite NEGATIVE (NEGATIVE) Urine Bilirubin NEGATIVE (NEGATIVE) Urine Urobilinogen 0.2 (<2.0) EU/dL Ur Leukocyte Esterase NEGATIVE (NEGATIVE) SARS Virus RNA (PCR) NEGATIVE (NEGATIVE) 05/08/20 Range/Units 05:20 WBC (4.0-11.0) K/uL RBC (4.30-5.90) M/uL Hgb (12.0-16.0) g/dL Hct (36.0-46.0) % MCV (80.0-98.0) fL MCH (27.0-32.0) pg MCHC (31.0-37.0) g/dL RDW Std Deviation (28.0-62.0) fl RDW Coeff of Amy (11.0-15.0) % Plt Count (150-400) K/uL MPV (7.40-12.00) fL Neut % (Auto) (48.0-80.0) % Lymph % (Auto) (16.0-40.0) % [place] % (Auto) (0.0-15.0) % Eos % (Auto) (0.0-7.0) % Baso % (Auto) (0.0-1.5) % Neut # (Auto) (1.4-5.7) K/uL Lymph # (Auto) (0.6-2.4) K/uL [place] # (Auto) (0.0-0.8) K/uL Eos # (Auto) (0.0-0.7) K/uL Baso # (Auto) (0.0-0.1) K/uL Nucleated RBC % /100WBC Nucleated RBCs # K/uL Sodium 139 (136-145) mmol/L Potassium 3.2 L (3.5-5.1) mmol/L Chloride 105 (98-107) mmol/L Carbon Dioxide 25.8 (21.0-32.0) mmol/L BUN 7 (7.0-18.0) mg/dL Creatinine 0.8 (0.6-1.0) mg/dL Est Cr Clr Drug Dosing 73.18 mL/min Estimated GFR (MDRD) > 60.0 ml/min Glucose 93 (74-106) mg/dL Calcium 7.8 L (8.5-10.1) mg/dL Total Bilirubin 0.5 (0.2-1.0) mg/dL AST 18 (15-37) IU/L ALT 19 (14-63) IU/L Alkaline Phosphatase 69 (46-116) U/L Total Protein 6.4 (6.4-8.2) g/dL Albumin 3.0 L (3.4-5.0) g/dL Globulin 3.4 (2.6-4.0) g/dL Albumin/Globulin Ratio 0.9 (0.9-1.6) Urine Color Urine Appearance Urine pH (5.0-8.0) Ur Specific [place] (1.001-1.035) Urine Protein (NEGATIVE) mg/dL Urine Glucose (UA) (NEGATIVE) mg/dL Urine Ketones (NEGATIVE) mg/dL Urine Occult Blood (NEGATIVE) Urine Nitrite (NEGATIVE) Urine Bilirubin (NEGATIVE) Urine Urobilinogen (<2.0) EU/dL Ur Leukocyte Esterase (NEGATIVE) SARS Virus RNA (PCR) (NEGATIVE) Med Orders - Current: Current Medications Hydrocodone Bitart/Acetaminophen ([place] 325-5 Mg) 1 tab PO Q4H PRN PRN Reason: Pain (moderate 4-6) Last Admin: 05/08/20 14:00 Dose: 1 tab Documented by: Fentanyl (Sublimaze) 50 mcg IVPUSH Q5M PRN PRN Reason: Pain Hydromorphone HCl (Dilaudid) 0.25 mg IVPUSH Q2H PRN PRN Reason: Pain (severe 7-10) Sodium Chloride (Normal Saline) 1,000 mls @ 125 mls/hr IV ASDIRECTED [facility] Last Admin: 05/08/20 07:06 Dose: 125 mls/hr Documented by: Acetaminophen 1,000 mg/ Premix 100 mls @ 400 mls/hr IV Q6H PRN PRN Reason: Pain Ondansetron HCl (Zofran) 4 mg IVPUSH Q4H PRN PRN Reason: Nausea Scopolamine (Transderm-Scop) 1.5 mg TRDERM Q72H PRN PRN Reason: Nausea Sodium Chloride (Saline Flush) 2.5 ml FLUSH ASDIRECTED PRN PRN Reason: Keep Vein Open Last Admin: 05/07/20 12:29 Dose: 2.5 ml Documented by: Sodium Chloride (Saline Flush) 10 ml FLUSH ASDIRECTED PRN PRN Reason: Keep Vein Open Last Admin: 05/07/20 12:29 Dose: 10 ml Documented by: Discontinued Medications Bupivacaine HCl/Epinephrine Bitart ([place] 0.25%/Epinephrine 1:200,000) Confirm Administered Dose 20 ml .ROUTE .STK-MED ONE Stop: 05/08/20 09:56 Dexamethasone (Dexamethasone) Confirm Administered Dose 20 mg .ROUTE .STK-MED ONE Stop: 05/08/20 07:10 Fentanyl (Fentanyl) 75 mcg IVPUSH ONETIME ONE Stop: 05/07/20 12:22 Last Admin: 05/07/20 12:28 Dose: 75 mcg Documented by: Fentanyl (Fentanyl) 75 mcg IVPUSH ONETIME ONE Stop: 05/07/20 15:05 Last Admin: 05/07/20 15:20 Dose: 75 mcg Documented by: Fentanyl (Sublimaze) Confirm Administered Dose 250 mcg .ROUTE .STK-MED ONE Stop: 05/08/20 07:10 Fentanyl (Sublimaze) Confirm Administered Dose 100 mcg .ROUTE .STK-MED ONE Stop: 05/08/20 11:34 Glycopyrrolate (Robinul) Confirm Administered Dose 0.2 mg .ROUTE .STK-MED ONE Stop: 05/08/20 07:21 Glycopyrrolate (Robinul) Confirm Administered Dose 0.6 mg .ROUTE .STK-MED ONE Stop: 05/08/20 10:11 Hydromorphone HCl (Dilaudid) 1 mg IVPUSH ONETIME ONE Stop: 05/07/20 12:48 Last Admin: 05/07/20 12:58 Dose: 1 mg Documented by: Hydromorphone HCl (Dilaudid) 0.25 mg IVPUSH Q2H PRN PRN Reason: Pain (severe 7-10) Piperacillin Sod/Tazobactam (Sod 4.5 gm/ Sodium Chloride) 100 mls @ 100 mls/hr IV ONETIME ONE Stop: 05/07/20 16:19 Last Admin: 05/07/20 15:31 Dose: 100 mls/hr Documented by: Cefoxitin Sodium 2 gm/ Premix 50 mls @ 100 mls/hr IV ONETIME ONE Stop: 05/07/20 18:06 Last Admin: 05/08/20 10:56 Dose: Not Given Documented by: Cefoxitin Sodium 2 gm/ Premix 50 mls @ 100 mls/hr IV ONETIME ONE Stop: 05/08/20 10:44 Last Admin: 05/08/20 14:00 Dose: Not Given Documented by: Acetaminophen (Ofirmev) Confirm Administered Dose 100 mls @ as directed .ROUTE .STK-MED ONE Stop: 05/08/20 12:22 Iopamidol (Isovue-370 (76%)) 100 ml IVPUSH ONETIME STA Stop: 05/07/20 15:59 Last Admin: 05/07/20 15:59 Dose: 100 ml Documented by: Ketorolac Tromethamine (Toradol) Confirm Administered Dose 30 mg .ROUTE .STK-MED ONE Stop: 05/08/20 10:10 Lidocaine HCl (Xylocaine 2%) Confirm Administered Dose 100 mg .ROUTE .STK-MED ONE Stop: 05/08/20 07:10 Midazolam HCl (Versed 1 Mg/Ml) Confirm Administered Dose 2 mg .ROUTE .STK-MED ONE Stop: 05/08/20 07:10 Octyl Cyanoacrylate (Dermabond Advance) Confirm Administered Dose 1 applic .ROUTE .STK-MED ONE Stop: 05/08/20 09:56 Ondansetron HCl (Zofran) Confirm Administered Dose 4 mg .ROUTE .STK-MED ONE Stop: 05/08/20 07:10 Propofol (Diprivan 20 Ml) Confirm Administered Dose 200 mg .ROUTE .STK-MED ONE Stop: 05/08/20 07:10 Rocuronium [place] (Rocuronium [place]) Confirm Administered Dose 50 mg .ROUTE .STK-MED ONE Stop: 05/08/20 07:10 - Exam Wound/Incisions: Dressing Dry and Intact (dermabond) General: Alert, Oriented, No Acute Distress GI/Abdominal Exam: Soft, Tender (minimal incisional tenderness) Sepsis Event Note - Evaluation Sepsis Screening Result: No Definite Risk - Focused Exam Vital Signs: Vital Signs Temp Pulse Resp BP BP Pulse Ox 05/08/20 14:05 97.5 F 50 L 12 108/68 98 05/08/20 13:50 46 L 14 103/62 98 05/08/20 13:35 42 L 13 103/58 L 98 05/08/20 13:20 44 L 14 107/64 99 05/08/20 13:05 97.5 F 45 L 16 109/57 L 96 05/08/20 12:49 46 L 14 110/58 L 98 05/08/20 12:44 46 L 13 110/54 L 98 05/08/20 12:34 46 L 15 108/55 L 98 05/08/20 12:29 49 L 11 L 105/56 L 96 05/08/20 12:24 54 L 17 98/52 L 95 05/08/20 12:19 68 15 107/55 L 95 05/08/20 12:14 60 17 102/54 L 98 05/08/20 12:09 53 L 12 96/49 L 99 05/08/20 12:04 54 L 12 93/49 L 99 05/08/20 11:58 97.7 F 66 14 95/46 L 97 05/08/20 07:45 97.8 F 58 L 14 97/47 L 93/57 L 95 05/08/20 04:00 97.9 F 57 L 15 110/61 98 - Problem List & Annotations (1) Symptomatic cholelithiasis SNOMED Code(s): 739558874, 171384177 Code(s): K80.20 - CALCULUS OF GALLBLADDER W/O CHOLECYSTITIS W/O OBSTRUCTION Status: Acute - Problem List Review Problem List Initiated/Reviewed/Updated: Yes - My Orders Last 24 Hours: Active Orders 24 hr Category Date Time Status Patient Status [ADT] Routine ADT 05/07/20 17:22 Active Antiembolic Devices [RC] PER UNIT ROUTINE Care 05/07/20 17:32 Active Height and Weight [RC] UPON Care 05/07/20 17:22 Active Intake and Output [RC] Q12H Care 05/07/20 17:24 Active Oxygen Therapy [RC] PRN Care 05/07/20 17:22 Active Pulse Oximetry [RC] PRN Care 05/07/20 17:24 Active Ready for Discharge [RC] PER UNIT ROUTINE Care 05/08/20 12:16 Active Up ad Rosa M [RC] ASDIRECTED Care 05/07/20 17:22 Active VTE/DVT Education [RC] PER UNIT ROUTINE Care 05/07/20 17:22 Active Vital Signs [RC] Q4H Care 05/07/20 17:22 Active NPO Now [Nothing per Oral Now Diet] [DIET] Diet 05/07/20 Dinner Active Acetaminophen [Ofirmev] 1,000 mg Med 05/08/20 10:59 Active Premix Bag 1 bag IV Q6H Acetaminophen/HYDROcodone [[place] 325-5 MG] Med 05/07/20 17:22 Active 1 tab PO Q4H PRN HYDROmorphone [Dilaudid] Med 05/08/20 07:39 Active 0.25 mg IVPUSH Q2H PRN Ondansetron [Zofran] Med 05/07/20 17:22 Active 4 mg IVPUSH Q4H PRN Scopolamine [Transderm-Scop] Med 05/08/20 08:16 Active 1.5 mg TRDERM Q72H PRN Sodium Chloride 0.9% [Normal Saline] 1,000 ml Med 05/07/20 17:30 Active IV ASDIRECTED fentaNYL [Sublimaze] Med 05/08/20 10:59 Active 50 mcg IVPUSH Q5M PRN Sequential Compression Device [OM.PC] Per Unit Routine Oth 05/07/20 17:25 Ordered Resuscitation Status Routine Resus Stat 05/07/20 17:22 Ordered Medication Orders Hydrocodone Bitart/Acetaminophen ([place] 325-5 Mg) 1 tab PO Q4H PRN PRN Reason: Pain (moderate 4-6) Last Admin: 05/08/20 14:00 Dose: 1 tab Documented by: GEOVANNA Fentanyl (Sublimaze) 50 mcg IVPUSH Q5M PRN PRN Reason: Pain Hydromorphone HCl (Dilaudid) 0.25 mg IVPUSH Q2H PRN PRN Reason: Pain (severe 7-10) Sodium Chloride (Normal Saline) 1,000 mls @ 125 mls/hr IV ASDIRECTED HAYDE Last Admin: 05/08/20 07:06 Dose: 125 mls/hr Documented by: Infusion: 05/08/20 02:28 Dose: 125 mls/hr Documented by: Admin: 05/07/20 18:28 Dose: 125 mls/hr Documented by: GEOVANNA Acetaminophen 1,000 mg/ Premix 100 mls @ 400 mls/hr IV Q6H PRN PRN Reason: Pain Ondansetron HCl (Zofran) 4 mg IVPUSH Q4H PRN PRN Reason: Nausea Scopolamine (Transderm-Scop) 1.5 mg TRDERM Q72H PRN PRN Reason: Nausea Sodium Chloride (Saline Flush) 2.5 ml FLUSH ASDIRECTED PRN PRN Reason: Keep Vein Open Last Admin: 05/07/20 12:29 Dose: 2.5 ml Documented by: KODY Sodium Chloride (Saline Flush) 10 ml FLUSH ASDIRECTED PRN PRN Reason: Keep Vein Open Last Admin: 05/07/20 12:29 Dose: 10 ml Documented by: GROTALI - Plan Plan (Free Text/Narrative):: Pt is s/p jennifer carey. She is feeling good. She has no complaints. I went over the surgery with her. I answered her questions. She is tolerating some food and liquids. She reports that her pain is controlled. she has urinated. She feels ready to go home. Talked with her and her on the phone about the discharge plan. She may go home. She should f/u in 1-2 weeks. She should come/call sooner if she has any questions or has any concerns.
--- NOTE | 2020-05-08 15:40 | PCM48HPAN ---
Post Anesthesia Note - EVALUATION WITHIN 48HRS OF ANESTHETIC Vital Signs in Normal Range: Yes Patient Participated in Evaluation: Yes Respiratory Function Stable: Yes Airway Patent: Yes Cardiovascular Function Stable: Yes Hydration Status Stable: Yes Pain Control Satisfactory: Yes Nausea and Vomiting Control Satisfactory: Yes Mental Status Recovered: Yes Vital Signs: Last Vital Signs Temp 36.4 C 05/08/20 14:05 Pulse 53 L 05/08/20 14:35 Resp 12 05/08/20 14:35 BP 102/57 L 05/08/20 14:35 Pulse Ox 96 05/08/20 14:35 - COMMENTS/OBSERVATIONS Free Text/Narrative:: No anesthesia problems
--- NOTE | 2020-05-08 19:50 | OR ---
SURGEON: MICHAEL BROWN MD DATE OF PROCEDURE: 05/08/2020 PREOPERATIVE DIAGNOSIS: Symptomatic cholelithiasis. POSTOPERATIVE DIAGNOSIS: Symptomatic cholelithiasis. PROCEDURE PERFORMED: Laparoscopic cholecystectomy. PRIMARY SURGEON: Michael Brown MD ANESTHESIA: General. ESTIMATED BLOOD LOSS: 10 mL. COMPLICATIONS: None. SPECIMEN: Gallbladder. FINDINGS: Slightly edematous gallbladder with large gallstones. REASON FOR PROCEDURE: The patient is a pleasant 50-year-old female who says that she has been getting biliary colic for last several months. She relates that she was scheduled to have it done in [place] electively, however, because of COVID, her surgery was cancelled. She was in the area visiting her when she had another attack yesterday. This attack did not go away. She went to the ER. In the ER, she had an ultrasound. The CT scan did show several large stones, one in the neck of the gallbladder. She had an unretractable pain. She had no white cell count. no LFT elevations. Because of her severe pain, she was admitted to the hospital. This morning, she was feeling better. Would like to have the gallbladder out, this is reasonable because she has had multiple attacks, and she has already been admitted once for intractable pain. I did go over with the patient again the risks, goals, and alternatives of the procedure. Risks include, but are not limited to, bleeding; infection; bile leak; injury to nearby structures such as duodenum, common bile, or small bowel or there just could be something on the gallbladder; change in bowel habits such as diarrhea; hernia formation; needing for it to open. The patient understands. She wishes to proceed. OPERATION NARRATIVE: The patient was brought to the OR. She was prepped and draped in usual sterile fashion. SCDs were placed. Preoperative antibiotics were given. Anesthesia was provided by the Anesthesia team. After time-out was performed, an infraumbilical incision was made. Now, two stay sutures were placed with 0 Vicryl into the fascia. The abdominal cavity was then entered using open Williams technique. A Williams trocar was placed. Insufflation was began and a pneumoperitoneum was established. Abdomen was inspected. No internal injury was seen. Now, three more 5 mm trocars were placed. One in the epigastric, one in the right upper quadrant, and one in the lower right abdomen. The fundus of the gallbladder was grasped and elevated. The gallbladder was slightly edematous. Now, infundibular gallbladder was grasped and the critical view was carefully dissected out. Did get a good critical view with the cystic duct, cystic artery, and the liver bed. The gallbladder was also dissected up a little way. No other structures were seen. After getting the good critical view, both the cystic duct and cystic artery were clipped and transected. Now, the rest of the gallbladder was removed using the Harmonic scalpel. There was a good hemostasis. The area was irrigated and suctioned. Good hemostasis in the gallbladder fossa and the clips are in place in good position. Now, the gallbladder was placed in the Endo Catch bag and brought out through the umbilical incision. Because the stone was fairly large, did have to increase the size of the incision to get it out. The gallbladder was out. The Williams trocar was replaced. The abdomen was again inspected. Again, there was good hemostasis. I did suction and irrigate out the residual fluid that was seen. Now, the 5 mm trocars were removed under direct visualization. There was good hemostasis. Pneumoperitoneum was released and the Williams trocar was removed. Now, the fascial defect was closed with 0 Vicryl in a [id number]. Appeared to be good closure. Two stay sutures were also used to suture together. Now, all the port sites were again reinjected with local. Now, the port sites were closed with 4-0 Monocryl and Dermabond. At the end of the case, sponge and needle counts were correct. The patient was transferred to the recovery room in stable condition. AQUILINO / PRANAV /[id number]
== END 2020-05-08 15:32 | disposition home or self-care (01) ==
LOC: MW.ED 11:47 → MW.MS 16:52 → MW.SDS 16:52
PROVIDERS: ATTEND Surgery
DX: K80.12 Calculus of gallbladder with acute and chronic cholecystitis without obstruction (principal); Z11.59 Encounter for screening for other viral diseases; F17.210 Nicotine dependence, cigarettes, uncomplicated
CPT/HCPCS: 36415; 47562; 74177; 76705; 80053; 81003; 83690; 84484; 84703; 85025; 87635; 88304; 93005; 96365; 96375; 96376; 99285; A9270; J0131; J1100; J1170; J1885; J2001; J2250; J2405; J2543; J2704; J3010; J3490; J7030; J7050; Q9967; 99284; U0002